=== PATIENT | male | born 1985 | race Caucasian/White ===

== ENCOUNTER 2023-11-06 23:14 | Emergency (ER) | payer BC, SELFPAY ==
[2023-11-06 23:16] VITALS: BP 180/90
--- NOTE | 2023-11-07 01:49 | ED.SKININJ ---
HPI-Injury
General
Chief Complaint: Skin Surface Trauma
Source: patient
Exam Limitations: none
Time Seen by Provider: 11/07/23 01:24
Travel History
Have you had any contact with someone who has COVID-19?: No
Do you have any symptoms of coronavirus? Fever > 100 degrees, chills, cough, shortness of breath, sore throat, loss of taste or smell, muscle aches, or headache?: No
History of Present Illness-Injury
Initial Injury comments:
38-year-old male [id number] presents with injury to left thumb he sustained today. He was using a drill driving a screw and then slipped off the screw and punctured his left thumb at the edge of his nail. Last tetanus 7 years ago. He
notes a throbbing sensation and persistent bleeding to the left thumb.
Phy Exam
Physical Exam
Physical Exam:
General: Well-appearing male no acute respiratory distress
Skin: Puncture wound ulnar aspect portion left thumbnail. A piece of the edge of the nail is missing. There is a small avulsion laceration over the skin fold over the ulnar aspect of the nail. Mild surrounding ecchymosis.
Musculoskeletal exam: Good range of motion left thumb no deformity
Course
Orders/Labs/Results
Orders:
Orders
11/06/23 23:20
Thumb/Finger(s) 2 View Lt [CR Finger(s)/thumb Min 2 Vw Lt] Urgent
Comment:
Reason For Exam: injury with a drill
Indicate Which Finger:: Thumb
11/07/23 01:52
Tetanus/Diphth/Acelpertussis [Adacel] 0.5 ml IM .ONCE ONE
Vital Signs
Initial and Last Documented VS:
Initial Vital Signs
Temp Pulse Resp BP Pulse Ox
98.3 F 84 18 180/90 100
11/06/23 23:16 11/06/23 23:16 11/06/23 23:16 11/06/23 23:16 11/06/23 23:16
Last Documented Vital Signs
Temp Pulse Resp BP Pulse Ox
98.3 F 84 18 180/90 100
11/06/23 23:16 11/06/23 23:16 11/06/23 23:16 11/06/23 23:16 11/06/23 23:16
MDM/Problems Addressed
Differential Diagnosis Includes:
Puncture wound left thumb and ulnar aspect of the thumbnail. Not currently bleeding nail is intact otherwise. X-rays of the thumb were obtained through triage which are negative for acute finding. Wound was dressed with antibacterial ointment and
a gauze wrap. Stable for discharge.
*Critical Care Note
Total Time (30-74mins, 75-104mins- exclusive of procedures): Not Applicable
ED Attending Note
-
Portions of this chart may have been created with voice recognition software.� Occasional wrong word or��sound alike� substitutions may have occurred due to the inherent limitations of voice recognition software.
Discharge Plan
Departure
Patient Disposition: Home (Routine Discharge)
Date of Disposition: 11/07/23
Time of Disposition: 01:51
Patient with high blood pressure during this ER visit?: No
Discharge Problem:
Puncture wound
Instructions: Wound Care (DC)
Activity Restrictions/Additional Instructions:
You may use ibuprofen or Tylenol for pain. Elevate for swelling. Change dressing if needed. Return if needed otherwise
Interventions
Interventions:
*Risk Screen - Suicide Last Done: 11/06/23 23:16
*General Assessment Last Done: 11/06/23 23:16
*Neglect/Abuse Screening Last Done: 11/06/23 23:16
ED- Fall Risk Assessment Last Done: 11/06/23 23:16
*ED COVID-19 Vaccine History Last Done: 11/07/23 02:41
*Nursing Disposition Last Done: 11/07/23 02:41
ED-Skin Assessment Last Done: 11/07/23 02:00
Discharge Date and Time
Discharge Date/Time: 11/07/23 02:42
[2023-11-07] MEDS: ADACEL 0.5 ML IM (02:01)
== END 2023-11-07 02:42 | disposition home or self-care (01) ==
LOC: EMR 23:14
PROVIDERS: EMERGENCY PHYSICIAN Emergency Medicine; FAMILY PHYSICIAN Nurse Practitioner
DX: S61.032A Puncture wound without foreign body of left thumb without damage to nail, initial encounter (principal); W45.0XXA Nail entering through skin, initial encounter; Z23 Encounter for immunization
CPT/HCPCS: 99283; 90471; 73140; 90715

== ENCOUNTER → 2023-12-31 12:21 | Outpatient (REF) | payer BC, SELFPAY | LOC: HWRAD 12:21 | PROVIDERS: ATTENDING PHYSICIAN Nurse Practitioner | DX: M25.561 Pain in right knee (principal) | CPT/HCPCS: 73564 ==